=== PATIENT | female | born 1955 | race African-American/Black ===

== ENCOUNTER 2016-11-18 05:05 | Inpatient (IN) | payer OTHER ==
[~2016-11-18] VITALS: Ht 162.6 cm; Wt 88.0 kg
[~2016-11-18 05:05] MED LIST: DOCU-270 PO; RIVA10TA PO; Sennosides PO; TIMO5DRO4 EACHEYE; [UNRECOGNIZED DRUG - OTHER] OP
[2016-11-18] MEDS ORDERED: CEFAZOLIN SODIUM/DEXTROSE,ISO 50 ML IV ONE (05:29)
[2016-11-18] MEDS ORDERED: FENTANYL PF 100MCG/2ML AMPUL ONE ×2 (06:13→08:37)
[2016-11-18] MEDS ORDERED: MIDAZOLAM HCL 2 MG/2ML VIAL ONE (06:13)
[2016-11-18] MEDS ORDERED: KETAMINE HCL (500MG/10ML) 50 MG/ML VIAL ONE (06:13)
[2016-11-18] MEDS ORDERED: KETOROLAC TROMETHAMINE INJ 30 MG/ML VIAL ONE (07:16)
[2016-11-18] MEDS ORDERED: BUPIVACAINE MPF 0.5% W/EPI INJ 30 ML VIAL ONE (07:16)
[2016-11-18] MEDS ORDERED: TRANEXAMIC ACID 3,000 MG in SODIUM CHLORIDE IRRIG SOLUTION 70 ML IR ONE (07:30)
[2016-11-18 08:00] VITALS: BP 143/103
[2016-11-18] MEDS ORDERED: HYDROCODONE/APAP 5/325MG 1 EACH TABLET PO PRN (09:00)
[2016-11-18] MEDS ORDERED: ONDANSETRON HCL/PF 4 MG/2 ML VIAL IV PRN (09:00)
[2016-11-18] MEDS ORDERED: ACETAMINOPHEN 325 MG TABLET PO PRN (09:00)
[2016-11-18] MEDS ORDERED: SENNOSIDES 8.6 MG TABLET PO PRN ×2 (09:00→17:30)
[2016-11-18] MEDS ORDERED: DOCUSATE SODIUM 250 MG CAPSULE PO SCH (09:00)
[2016-11-18] MEDS ORDERED: ZOLPIDEM TARTRATE 5 MG TABLET PO PRN ×2 (09:00→11:30)
[2016-11-18 09:30] VITALS: BP 123/85
--- NOTE | 2016-11-18 09:30 | NUR ---
MIRTHA REESE RN: ADMISSION NOTE PT ARRIVED FROM OR STATUS POST TOTAL RIGHT KNEE REPLACEMENT AT 0930. PT A/OX4. NO CONFUSION NOTED. NO DISTRESS NOTED. ON 2L NC SATING AT 100%. R KNEE SURGICAL SITE DRESSING INTACT. DRESSING CHANGE WILL BE DONE BY MD. NO BLEEDING NOTED. SKIN INTACT. RIGHT WRIST IV #18 RUNNING NS AT 125ML/HR. SITE CLEAR. PATENT. NO INFILTRATION NOTED. PAIN CONTROLLED WITH PAIN MANAGEMENT. VS STABLE. BP 123/85, PULSE 63, RR18. TEMP 98.0. IS ON REGULAR DIET. 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 PT ORDERS FOR FWB WHEN AMBULATORY. ALL MEDICATIONS ADMINISTERED ON TIME. NO ADVERSE REACTIONS NOTED. RESTING COMFORTABLY IN BED. CALL LIGHT WITHIN REACH.
[2016-11-18] MEDS: ASPIRIN 325 MG TABLET PO SCH ×2 (09:40→17:04)
--- NOTE | 2016-11-18 10:00 | NUR ---
PAGED DR MEDINA FOR ADMISSION ORDERS.
[2016-11-18 10:59] LABS: HEMOGLOBIN 12.4 g/dL (11.5-14.8)
[2016-11-18] MEDS ORDERED: MAGNESIUM HYDROXIDE 30 ML UDC PO PRN (11:30)
[2016-11-18] MEDS ORDERED: BISACODYL SUPP (10 MG) 10 MG/SUPP.RECT SUPP.RECT RC PRN (11:30)
[2016-11-18] MEDS ORDERED: HYDROCODONE/APAP 10/325MG 1 EA TABLET PO PRN (11:30)
[2016-11-18] MEDS ORDERED: diphenhydrAMINE HCL 25 MG CAPSULE PO PRN (11:30)
[2016-11-18] MEDS ORDERED: MENTHOL/CETYLPYRD (CEPACOL) 1 LOZ LOZENGE PO PRN (11:30)
[2016-11-18] MEDS ORDERED: MAG HYDROX/AL HYDROX/SIMETH 30 ML UDC PO PRN (11:30)
[2016-11-18] MEDS ORDERED: CLONIDINE HCL 0.1 MG TABLET PO PRN (11:30)
[2016-11-18] MEDS ORDERED: oxyCODONE IR immediate release 5 MG CAPSULE PO PRN (12:00)
[2016-11-18] MEDS ORDERED: PROMETHAZINE HCL 25 MG/ML AMPUL IM PRN (12:00)
[2016-11-18] MEDS ORDERED: NALOXONE HCL 0.4 MG/ML AMPUL IV PRN (12:00)
[2016-11-18] MEDS: MORPHINE SULFATE INJ 4 MG/ML DISP.SYRIN IM PRN ×3 (12:17→18:31)
[2016-11-18] MEDS: IV D5/0.45 NACL 1,000 ML IV PRN (14:12)
[2016-11-18 16:00] VITALS: BP 122/64
[2016-11-18] MEDS ORDERED: DOCUSATE SODIUM 100 MG CAPSULE PO SCH (17:00)
[2016-11-18] MEDS ORDERED: TIMOLOL 0.5% SOLN OPHTH 5 ML BOTTLE EACHEYE SCH (17:00)
[2016-11-18] MEDS: DOCUSATE SODIUM 100 MG CAPSULE PO SCH (17:04)
[2016-11-18] MEDS: SENNOSIDES 8.6 MG TABLET PO SCH (17:04)
[2016-11-18] MEDS: ANCEF 1 GM/50 ML D5W IV SCH ×2 (17:04)
--- NOTE | 2016-11-18 18:04 | NUR ---
MED SURGE NOTE: CLOSING NOTE PT A/OX4. N/V STOPPED. NO DISTRESS NOTED. NO SOB NOTED. ON 2 L NC SATING AT 100%. PAIN CONTROLLED WITH PAIN MANAGEMENT ORDERED. RIGHT KNEE DRESSING INTACT. NO REDNESS. NO BLEEDING NOTED. CPM MACHINE PLACED BY PT. PT CURRENTLY ON MACHINE. IV FLUIDS RUNNING D5 1/2 NS AT 125ML/HR ON R WRIST. IV SITE PATENT. LEG BRACE AT BEDSIDE. RESTING COMFORTABLY IN BED. CALL LIGHT WITHIN REACH.
--- NOTE | 2016-11-18 18:22 | NUR ---
DR CAMPOS CALLED AND CHECKED IF PT TOOK XARELTO AT HOME.PT STATED THAT XARELTO WAS PRESCRIBED WHEN SHE HAD HER LT KNEE TOTAL REPLACEMENT LAST FEB 2016 BUT WAS CANCELLED AT THE SAME TIME BY THE DOCTOR.XARELTO WAS HELD BY DR FONTANEZ AT THIS TIME.DR CAMPOS DOESN'T WANT XARELTO PRESCRIBED TO THE PT EITHER AND JUST WANTS ASPIRIN 325 MG PO BID.
[2016-11-18] MEDS ORDERED: BRIMONIDINE TARTRATE OPHT SOLN 5 ML BOTTLE RIGHTEYE SCH (19:00)
--- NOTE | 2016-11-18 19:20 | NUR ---
RN NOTES RECEIVED PT AWAKE, HOB ELEVATED, NO SOB, NOT IN DISTRESS ON ROOM AIR AND TOLERATED WELL. PT ALERT AND ORIENTED X4, DENIES ANY PAIN, NAUSEA AND VOMITING AT THIS TIME. IV ACCESS ON RIGHT WRIST PATENT AND INTACT, NO SIGNS OF INFILTRATE NOTED WITH ONGOING IV FLUID INFUSING WELL. POLANCO CATH INTACT WITH CLEAR YELLOW URINE OUTPUT NOTED. RIGHT KNEE DRESSING INTACT, CLEAN AND DRY. LEFT LEG WITH DVT PUMP ON. KEPT PT COMFORTABLE AND ATTENDED. WILL CONTINUE TO MONITOR PT.
[2016-11-18 20:00] VITALS: BP_SYST 124; BP_SYST 148; BP_DIAS 67; BP_DIAS 74
[2016-11-18] MEDS: DORZOLAMIDE OPTH 2% 10 ML BOTTLE RIGHTEYE SCH ×2 (20:40→20:43)
[2016-11-18] MEDS: ONDANSETRON HCL/PF 4 MG/2 ML VIAL IVP PRN (20:51)
--- NOTE | 2016-11-18 21:00 | NUR ---
RN NOTES PT FEELS NAUSEATED, ZOFRAN 4 MF GIVEN IV. WILL CONTINUE TO MONITOR PT.
[2016-11-18] MEDS: PANTOPRAZOLE 40 MG TABLET.DR PO SCH (21:39)
[2016-11-18] MEDS: LATANOPROST EYE DROP 0.005% 2.5 ML BOTTLE RIGHTEYE SCH (21:44)
[2016-11-18 22:00] VITALS: BP 124/67
[2016-11-19] MEDS: IV D5/0.45 NACL 1,000 ML IV PRN ×3 (00:29→17:41)
[2016-11-19] MEDS: ANCEF 1 GM/50 ML D5W IV SCH ×2 (00:29)
[2016-11-19] MEDS: MORPHINE SULFATE INJ 4 MG/ML DISP.SYRIN IM PRN ×6 (03:04→20:27)
--- NOTE | 2016-11-19 03:04 | NUR ---
RN NOTES PT COMPLAINS OF 9/10 PAIN ON HER RIGHT KNEE, MORPHINE SULFATE 4 MG GIVEN IM ON LEFT DELTOID. WILL CONTINUE TO MONITOR PT.
--- NOTE | 2016-11-19 07:24 | NUR ---
RN NOTES PT AWAKE, HOB ELEVATED, NO SOB, NOT IN DISTRESS, ON 2LPM O2 VIA NC WITH GOOD SATURATION. VITAL SIGNS STABLE, AFEBRILE. NAUSEA AND VOMITING CONTROLLED. KEPT PAIN AT TOLERABLE LEVEL. PT NOTED WITH INCREASE MOBILITY IN BED. KEPT RIGHT LOWER LEG ELEVATED ELEVATED ON A PILLOW PER PT REQUEST FOR COMFORT. ALL DUE MEDS GIVEN. OPHTHALMIC EYE DROPS UNABLE TO SCAN, IT SAYS FOR DIFFERENT PT , MANUAL BAR CODE USED. POLANCO CATH INTACT WITH CLEAR URINE OUTPUT. ALL NEEDS ATTENDED. WILL ENDORSED TO MORNING RN FOR CONTINUITY OF CARE.
[2016-11-19 07:30] LABS: HEMOGLOBIN 10.6 g/dL (11.5-14.8)
--- NOTE | 2016-11-19 07:38 | NUR ---
MIRTHA REESE RN: INITIAL NOTE RECEIVED PT A/O X4. PAIN CONTROLLED WITH PAIN MANAGEMENT. NO DISTRESS NOTED. NO SOB NOTED. RIGHT KNEE DRESSING INTACT STATUS POST TOTAL RIGHT KNEE REPLACEMENT. IC RUNNING D5 1/2 NS AT 125ML/HR ON RIGHT WRIST. NO REDNESS. NO INFILTRATION NOTED. RESTING COMFORTABLY IN BED. CALL LIGHT WITHIN REACH.
[2016-11-19 08:00] VITALS: BP 125/67
[2016-11-19] MEDS: TIMOLOL 0.5% SOLN OPHTH 5 ML BOTTLE RIGHTEYE SCH (08:18)
[2016-11-19] MEDS: DOCUSATE SODIUM 100 MG CAPSULE PO SCH ×2 (08:19→16:36)
[2016-11-19] MEDS: ASPIRIN 325 MG TABLET PO SCH ×2 (08:19→16:37)
[2016-11-19] MEDS: SENNOSIDES 8.6 MG TABLET PO SCH ×2 (08:19→16:36)
[2016-11-19] MEDS: ONDANSETRON HCL/PF 4 MG/2 ML VIAL IVP PRN ×3 (08:20→21:29)
[2016-11-19] MEDS: BRIMONIDINE TARTRATE OPHT SOLN 5 ML BOTTLE RIGHTEYE SCH ×3 (08:32→16:36)
[2016-11-19] MEDS: DORZOLAMIDE OPTH 2% 10 ML BOTTLE RIGHTEYE SCH ×2 (12:12→16:36)
--- NOTE | 2016-11-19 15:20 | NUR ---
PT WAS SEEN BY P.T. AND RECOMMENDED ACUTE REHAB UNIT PLACEMENT.DR CALLAHAN MADE AWARE WITH ORDERS FOR CASE MGT CONSULT.CALLED ZORAN,INSTALLATION SERVICE REPRESENTATIVE WHO IS ALREADY DOING FOLLOW UP ON THE PT FOR ARU PLACEMENT.
[2016-11-19 16:00] VITALS: BP 128/63
--- NOTE | 2016-11-19 17:52 | NUR ---
MED SURGE RN: CLOSING NOTE PT A/OX4. NO DISTRESS NOTED. NO SOB NOTED. PAIN CONTROLLED WITH PAIN MANAGEMENT. WAS ABLE TO AMBULATE WITH PT WITH BRACE AND WALKER. TOLERATED ACTIVITIES WELL. FC D/C IN AM. NO URINE RETENTION NOTED. NO HEMATURIA. NO VOMITING NOTED. NAUSEA CONTROLLED WITH MEDICATION. WAS BALE TO EAT LUNCH AND DINNER. VS STABLE. IV WRIST RUNNING D5 1/2 NS AT 125ML/HR. SITE CLEAR. PATENT, NO REDNESS NOTED. RESTING COMFORTABLY IN BED. CALL LIGHT WITHIN REACH.
--- NOTE | 2016-11-19 19:40 | NUR ---
RN INITIAL NOTES: RECEIVED REPORT FROM ALEJANDRO RN, PT IN BED, SLEEPING, NO FACIAL GRIMACE NOTED, PER REPORT PT IS A/O X3 ON RA RESPIRATION EVEN AND UNLABORED, PT S/P RIGHT KNEE ARTHROPLASTY ON 11/18/[address] HOBBS, SURGICAL DRESSING ON RIGHT KNEE C/D/I, NO ACTIVE BLEEDING NOTED, ELEVATED ON PILLOW, ALSO PT USES CPM MACHINE DURING THE DAY AND WORKED WITH PT TWICE, ABLE TO AMBULATE WITH ASSIST USING A FWB, AND KNEE IMMOBILIZER WHEN WALKING, RIGHT WRIST IV ACCESS PATENT AND FLUSHING WELL, INFUSING WITH D5 1/2 NS AT 125 ML/HR, SAFETY PRECAUTIONS FOR FALL INITIATED CALL LIGHT IN REACH WILL CONTINUE TO MONITOR.
[2016-11-19 20:00] VITALS: BP 134/67
[2016-11-19 20:14] VITALS: BP 134/67
--- NOTE | 2016-11-19 20:28 | NUR ---
PRN MORPHINE: PT C/O 10/17 PAIN ON HER RIGHT KNEE REQUESTING FOR MORPHINE, PRN MORPHINE 4MG IM ADMINISTERED ON THE LEFT ARM, EDUCATE PT REGARDING MEDICATION KING EFFECT, WILL CONTINUE TO MONITOR
--- NOTE | 2016-11-19 21:15 | NUR ---
DR CAMPOS CONSULTATION: SEEN BY DR CAMPOS AT THIS TIME, WITH NEW ORDERS MADE AND CARRIED OUT, ALSO PT DOING IS WHILE AWAKE
--- NOTE | 2016-11-19 21:16 | NUR ---
CRISPIN NOTES: IVF RATE WAS CHANGED FROM 125ML/HR TO 50ML/HR AND WITH ORDER TO PUT ON SALINE LOCK WHEN PT TOLERATES PO INTAKE Addendum: 11/19/16 at 2315 by ROCHELLE YADAV RN CONTINUATION: ABOVE IVF STILL HAS MORE THAN 500ML, RATE WAS CHANGED IN THE IV PUMP ORDERED BY ,
[2016-11-19] MEDS: PANTOPRAZOLE 40 MG TABLET.DR PO SCH (21:29)
[2016-11-19] MEDS: LATANOPROST EYE DROP 0.005% 2.5 ML BOTTLE RIGHTEYE SCH (21:30)
[2016-11-19] MEDS ORDERED: oxyCODONE IR immediate release 5 MG CAPSULE PO PRN (21:30)
--- NOTE | 2016-11-19 21:30 | NUR ---
PRN ZOFRAN: PT C/O BEING NAUSEATED REQUESTING FOR ZOFRAN, PRN ZOFRAN 4MG IVP ADMINISTERED TO THE PT AT THIS TIME, WILL CONTINUE TO MONITOR AND REASSESS
[2016-11-19 23:25] VITALS: BP 132/70
[2016-11-20 03:15] VITALS: BP 128/88
[2016-11-20] MEDS: ONDANSETRON HCL/PF 4 MG/2 ML VIAL IVP PRN (03:21)
--- NOTE | 2016-11-20 03:22 | NUR ---
PRN ZOFRAN: PT C/O NAUSEA REQUESTING FOR ZOFRAN, PRN ZOFRAN 4MG IVP ADMINISTERED TO THE PT AT THIS TIME, WILL CONTINUE TO MONITOR AND REASSESS
[2016-11-20] MEDS: MORPHINE SULFATE INJ 4 MG/ML DISP.SYRIN IM PRN (03:23)
--- NOTE | 2016-11-20 03:24 | NUR ---
PRN MORPHINE: PT C/O 10/17 RIGHT KNEE PAIN REQUESTING FOR PAIN MEDICATION, PRN MORPHINE 4MG IM ADMINISTERED TO THE PT AT THIS TIME, WILL CONTINUE TO MONITOR AND REASSESS
[2016-11-20] MEDS: IV D5/0.45 NACL 1,000 ML IV PRN (06:30)
--- NOTE | 2016-11-20 07:02 | NUR ---
RN CLOSING NOTES: PT IN BED, REMAINS ON ROOM AIR, DENIES ANY SOB, LAST PAIN MEDS ADMINISTERED AT 0323AM, RIGHT WRIST IV ACCESS REMAINS PATENT AND FLUSHING WELL, INFUSING WITH D51/2 NS AT 50ML/HR, RIGHT KNEE SURGICAL DRESSING REMAINS C/D/I, NO ACTIVE BLEEDING NOTED, ELEVATED ON PILLOW. VS REMAINS STABLE, NEEDS ATTENDED, FOR DRESING CHANGE TODAY BY MD, SAFETY PRECAUTIONS FOR FALL REMAINS ENGAGED, CALL LIGHT ION REACH, WILL ENDORSE TO DAY RN FOR YOHANNES.
--- NOTE | 2016-11-20 07:52 | NUR ---
MED SURGE RN: INITIAL NOTE RECEIVED PT A/OX4. NO DISTRESS. NO SOB. ON ROOM AIR SATING AT 96%. PAIN CONTROLLED WITH PAIN MEDICATIONS. R WRIST RUNNING D5 1/2 NS AT 50ML/HR. SITE CLEAR AND PATENT. RIGHT KNEE DRESSING INTACT. RESTING COMFORTABLY IN BED. CALL LIGHT WITHIN REACH.
[2016-11-20 07:55] LABS: HEMOGLOBIN 10.3 g/dL (11.5-14.8)
[2016-11-20 08:00] VITALS: BP 125/66
[2016-11-20] MEDS: DOCUSATE SODIUM 100 MG CAPSULE PO SCH ×2 (08:29→16:27)
[2016-11-20] MEDS: ASPIRIN 325 MG TABLET PO SCH ×2 (08:29→16:27)
[2016-11-20] MEDS: DORZOLAMIDE OPTH 2% 10 ML BOTTLE RIGHTEYE SCH ×3 (08:29→16:32)
[2016-11-20] MEDS: SENNOSIDES 8.6 MG TABLET PO SCH ×2 (08:29→16:27)
[2016-11-20] MEDS: BRIMONIDINE TARTRATE OPHT SOLN 5 ML BOTTLE RIGHTEYE SCH ×3 (08:30→16:32)
[2016-11-20] MEDS: TIMOLOL 0.5% SOLN OPHTH 5 ML BOTTLE RIGHTEYE SCH (08:30)
[2016-11-20] MEDS ORDERED: OXYC5CAP3 PO (12:00)
[2016-11-20 16:00] VITALS: BP 137/73
[2016-11-20] MEDS ORDERED: oxyCODONE IR immediate release 5 MG CAPSULE PO ONE (16:04)
--- NOTE | 2016-11-20 18:20 | NUR ---
MED SURGE RN: CLOSING NOTE PT A/O X4. ALL MEDICATIONS GIVEN ORDERED. NO ADVERSE REACTIONS NOTED. PAIN CONTROLLED WITH PAIN MEDICATIONS. COMPLIANT WITH PT. ABLE TO TOLERATE MOVEMENT. WALKING TO RESTROOM WITH BRACE AND WALKER WITH MINIMAL ASSIST. IV SITE ON R WRIST RUNNING D5 1/2 NS AT 50ML/HR. SITE CLEAR. PATENT. NO REDNESS. NO INFILTRATION. D/C PLANNING FOR TOMORROW TO ACUTE REHAB FACILITY. NO DISTRESS NOTED. NO SOB NOTED. DRESSING CHANGED BY MD. RESTING COMFORTABLY IN BED. CALL LIGHT WITHIN REACH.
[2016-11-20 20:00] VITALS: BP 120/62
[2016-11-20] MEDS: PANTOPRAZOLE 40 MG TABLET.DR PO SCH (21:19)
[2016-11-20] MEDS: LATANOPROST EYE DROP 0.005% 2.5 ML BOTTLE RIGHTEYE SCH (21:21)
[2016-11-20] MEDS: oxyCODONE IR immediate release 5 MG CAPSULE PO PRN (21:39)
--- NOTE | 2016-11-20 21:40 | NUR ---
ms/rn notes patient medicated with oxy ir 15 mg po as ordered for gen. pain, 8/10 level of pain. vital signs stable. will continue to monitor.
[2016-11-21] MEDS: IV D5/0.45 NACL 1,000 ML IV PRN (04:02)
--- NOTE | 2016-11-21 07:28 | NUR ---
RN OPEN NOTES RECEIVED REPORT FROM FLORAL DEPARTMENT SPECIALIST NURSE. WILL CONTINUE TO MONITOR AND ASSESS PATIENT.
[2016-11-21 08:00] VITALS: BP 128/64
[2016-11-21] MEDS: BRIMONIDINE TARTRATE OPHT SOLN 5 ML BOTTLE RIGHTEYE SCH ×3 (08:37→17:08)
[2016-11-21] MEDS: ASPIRIN 325 MG TABLET PO SCH ×2 (08:37→17:08)
[2016-11-21] MEDS: DOCUSATE SODIUM 100 MG CAPSULE PO SCH ×2 (08:37→17:08)
[2016-11-21] MEDS: DORZOLAMIDE OPTH 2% 10 ML BOTTLE RIGHTEYE SCH ×3 (08:37→17:08)
[2016-11-21] MEDS: TIMOLOL 0.5% SOLN OPHTH 5 ML BOTTLE RIGHTEYE SCH (08:37)
[2016-11-21] MEDS: SENNOSIDES 8.6 MG TABLET PO SCH ×2 (08:37→17:08)
[2016-11-21] MEDS: oxyCODONE IR immediate release 5 MG CAPSULE PO PRN ×3 (08:38→17:09)
[2016-11-21 16:00] VITALS: BP 117/60
[2016-11-21] MEDS ORDERED: MAGNESIUM CITRATE 296 ML BOTTLE PO STA (17:36)
--- NOTE | 2016-11-21 18:36 | NUR ---
RN CLOSING NOTES PATIENT IS IN BED, ALERT AND ORIENTED TO NAME, PLACE AND TIME. NO SIGNS AND SYMPTOMS OF DISTRESS. PATIENT IS ABLE TO VERBALIZE AND ASK FOR PAIN MEDICATION BEFORE PAIN IS UNCONTROLLED. PATIENT KEPT DRY AND CLEAN. PATIENT IS ABLE TO AMBULATE TO THE BATHROOM WITH ASSIST, WALKER AND KNEE IMMOBILIZER. BED IN LOW POSITION, LOCKED AND TWO SIDE RAILS ARE UP. IV SITE IS INTACT AND PATENT. DISCHARGE IN AM, PENDING INSURANCE APPROVAL ([employer]). PATIENT HAS CONSTIPATION, LAXATIVE ADMINISTERED PER DR TEJEDA ORDERS. WILL ENDORSE TO COMMUNITY EDUCATOR NURSE.
--- NOTE | 2016-11-21 19:00 | NUR ---
MS RN NOTES RECEIVE PT RESTING IN BED, A/OX 4. NO S/S OF DISTRESS OR SOB. SAFETY MEASURES IN PLACE, ON LOW BED TO ENSURE SAFETY. CALL LIGHT WITHIN REACH. WILL CONTINUE TO MONITOR.
[2016-11-21 20:00] VITALS: BP 111/63
[2016-11-21] MEDS: PANTOPRAZOLE 40 MG TABLET.DR PO SCH (21:30)
[2016-11-21] MEDS: LATANOPROST EYE DROP 0.005% 2.5 ML BOTTLE RIGHTEYE SCH (21:33)
--- NOTE | 2016-11-22 06:48 | NUR ---
MS RN CLOSING NOTES PATIENT COMFORTABLY ASLEEP AND EASILY AWAKEN, HEAD OF BED ELEVATED. R WRIST 18 G PATENT AND INTACT WITH NO S/S OF INFILTRATION NOTED. APPEARS NOT IN DISTRESS. RESPIRATIONS EVEN AND UNLABORED, FREQUENT VISUAL CHECK DONE FOR SAFETY EVERY 2 HOURS. PATIENT ASSISTED REPOSITIONED EVERY 2 HOURS FOR SKIN MGT. NURSING CARE RENDERED, NEEDS ATTENDED AND ANTICIPATED, KEPT CLEAN AND DRY AND COMFORTABLE, GOOD SKIN CARE PROVIDED. OFFLOAD AT ALL TIMES. SAFE HAZARD FREE ENVIRONMENT PROVIDED. CALL LIGHT WITHIN EASY TO REACH, ON LOW BED AT ALL TIMES TO ENSURE SAFETY, WILL ENDORSE TO THE NEXT SHIFT CONTINUE PLAN OF CARE
--- NOTE | 2016-11-22 07:12 | NUR ---
RN OPEN NOTES RECEIVED REPORT FROM OPERATIONAL REVIEW SERGEANT NURSE. PATIENT IS IN BED, AWAKE, ALERT AND ORIENTED TO NAME, PLACE AND TIME. NO SIGNS AND SYMPTOMS OF DISTRESS. PAIN LEVEL 5/10, WILL ADMINISTER PAIN MEDS. WILL CONTINUE TO MONITOR AND ASSESS PATIENT THROUGHOUT MY SHIFT
[2016-11-22] MEDS: oxyCODONE IR immediate release 5 MG CAPSULE PO PRN ×3 (07:26→15:58)
[2016-11-22 08:00] VITALS: BP 119/69
[2016-11-22] MEDS: DOCUSATE SODIUM 100 MG CAPSULE PO SCH ×2 (08:03→16:00)
[2016-11-22] MEDS: TIMOLOL 0.5% SOLN OPHTH 5 ML BOTTLE RIGHTEYE SCH (08:03)
[2016-11-22] MEDS: ASPIRIN 325 MG TABLET PO SCH ×2 (08:03→16:00)
[2016-11-22] MEDS: BRIMONIDINE TARTRATE OPHT SOLN 5 ML BOTTLE RIGHTEYE SCH ×3 (08:03→16:00)
[2016-11-22] MEDS: SENNOSIDES 8.6 MG TABLET PO SCH ×2 (08:03→16:00)
[2016-11-22] MEDS: DORZOLAMIDE OPTH 2% 10 ML BOTTLE RIGHTEYE SCH ×3 (08:03→16:00)
--- NOTE | 2016-11-22 08:51 | NUR ---
OT AT BEDSIDE
--- NOTE | 2016-11-22 12:48 | NUR ---
left message to Carl Bejarano- adj at [facility] [phone] requesting call back with auth for ARU. Spoke with Kourtney Montero- porter sample case at [facility] [phone], she is unable to process auth for ARU without assembly adjuster approval. Addendum: 11/22/16 at 2058 by DANISHA SHARMA RN Amended: Links added.
[2016-11-22 16:00] VITALS: BP 119/69
--- NOTE | 2016-11-22 16:43 | NUR ---
spoke with patient, stated she has no enough help at home as her fiance had a recent back surgery. Finally was able to spoke with tire adjuster at [facility] [phone] and approved ARU X5 days. Spoke with Tata at [facility] [phone] accepted patient and provided bed room# 107, ambulance pick up driver 8pm . Patient is aware Addendum: 11/22/16 at 2106 by DANISHA SHARMA RN Amended: Links added.
--- NOTE | 2016-11-22 18:43 | NUR ---
RN CLOSING NOTES PATIENT IS IN BED, ALERT AND ORIENTED TO NAME, PLACE AND TIME. NO SIGNS AND SYMPTOMS OF DISTRESS. PATIENT IS ABLE TO VERBALIZE AND ASK FOR PAIN MEDICATION BEFORE PAIN IS UNCONTROLLED. PATIENT KEPT DRY AND CLEAN. PATIENT IS ABLE TO AMBULATE TO THE BATHROOM WITH ASSIST, WALKER AND KNEE IMMOBILIZER. BED IN LOW POSITION, LOCKED AND TWO SIDE RAILS ARE UP. IV SITE IS INTACT AND PATENT. DISCHARGE TONIGHT OR IN AM, PENDING BED PLACEMENT IN [facility]. PATIENT HAD A BOWEL MOVEMENT EARLIER TODAY. WILL ENDORSE TO BOAT BUFFER PLASTIC NURSE.
--- NOTE | 2016-11-22 19:47 | NUR ---
AUTOMOTIVE MANAGER NOTES PATIENT DISCHARGE ORDER RECEIVED AND CARRIED OUT. PATIENT IS TRANSFERRING TO [facility]. PATIENT IS ALERT AND ORIENTED TO NAME, TIME AND PLACE. PATIENT RECEIVED ALL DISCHARGE INSTRUCTION AND VERBALIZED UNDERSTANDING. ALL DISCHARGE FORMS SIGNED AND PLACED IN THE CHART. ALL BELONGING WITH PATIENT AT TIME OF DISCHARGE; FORM SIGNED AND PLACED IN THE CHART. PATIENT HOME MEDICATION PICKED UP FROM PHARMACY AND RETURNED TO PATIENT. MEDICATION LIST AND PRESCRIPTION EXPLAINED TO PATIENT AND PLACED IN DISCHARGE PACKET. PATIENT IS LEAVING IN A STABLE CONDITION. NO SIGNS AND SYMPTOMS OF DISTRESS. DENIED PAIN AT TIME OF DISCHARGE. SKIN IS INTACT. IV SITE REMOVED. ID BAND REMOVED. PATIENT IS TRANSPORTED TO [facility] WITH AMBULANCE AND TWO bsa officer. REPORT [facility] TO YURIY AT [phone] [facility] PATIENT [facility]ING TO ROOM 107.
== END 2016-11-22 19:43 | DRG 470 ==
LOC: DS 05:05 → MED 08:45
PROVIDERS: ADMIT Specialist; ATTEND Internal Medicine
PROC: 0SRC0J9 Replacement of Right Knee Joint with Synthetic Substitute, Cemented, Open Approach (ICD-10-PCS; principal; 2016-11-18 07:12)
DX: M17.11 Unilateral primary osteoarthritis, right knee (principal); E66.9 Obesity, unspecified; J45.909 Unspecified asthma, uncomplicated; H40.9 Unspecified glaucoma; K21.9 Gastro-esophageal reflux disease without esophagitis; M19.90 Unspecified osteoarthritis, unspecified site; Z68.33 Body mass index [BMI] 33.0-33.9, adult
CPT/HCPCS: 36415; 85027-TC; 86850-TC; 87081-TC; 88305-TC; 88311-TC; 97110-TC; 97116-TC; 97530-TC; 97535-TC; 97760-TC; A4217; A6402; C1713; J0690; J1885; J2250; J2270; J2405; J2550; J2704; J3010; J3490; J7042; J7060